=== PATIENT | male | born 1955 ===

== ENCOUNTER → 2023-04-05 | Day surgery (SDC) | payer MEDICARE ==
[~2023-04-05] VITALS: Ht 182.8 cm; Wt 131.5 kg
[~2023-04-05] MED LIST: Avapro300 MG PO; CHLORTHALIDONE25 MG PO; ELIQUIS5 M1 PO; LEVOTHYROXINE50 MCG PO; LIPITOR40 MG PO; METFORMIN HYD1000 MG PO; METOPROLOL SUC100 M1 PO; NORVASC5 MG PO; PANTOPRAZOLE SO40 MG PO
[2023-04-05 07:30] VITALS: BP 182/74
[2023-04-05 09:05] VITALS: BP 126/54
[2023-04-05 09:15] VITALS: BP 118/60
[2023-04-05 09:29] VITALS: BP 128/50
== END | disposition home or self-care (01) ==
LOC: SDC 04-01 11:00
PROVIDERS: ATTEND Surgery
DX: Z12.11 Encounter for screening for malignant neoplasm of colon (principal); Z86.010 Personal history of colon polyps; I10 Essential (primary) hypertension; I25.2 Old myocardial infarction; I25.10 Atherosclerotic heart disease of native coronary artery without angina pectoris; E78.00 Pure hypercholesterolemia, unspecified; F17.210 Nicotine dependence, cigarettes, uncomplicated; Z79.899 Other long term (current) drug therapy
CPT/HCPCS: 00812; G0105

== ENCOUNTER → 2024-08-08 | Outpatient (CLI) | payer MEDICARE | END | disposition home or self-care (01) | LOC: RAD 14:21 | PROVIDERS: ATTEND Internal Medicine Critical Care Medicine | DX: J44.9 Chronic obstructive pulmonary disease, unspecified (principal); J98.4 Other disorders of lung; R05.9 Cough, unspecified; J98.11 Atelectasis ==

== ENCOUNTER → 2025-09-07 | Outpatient (CLI) | payer MEDICARE | END | disposition home or self-care (01) | LOC: WOUNDCARE 04:54 | PROVIDERS: ATTEND Nurse Practitioner Family | DX: E11.621 Type 2 diabetes mellitus with foot ulcer (principal); L97.512 Non-pressure chronic ulcer of other part of right foot with fat layer exposed; L03.116 Cellulitis of left lower limb; M20.40 Other hammer toe(s) (acquired), unspecified foot; E11.42 Type 2 diabetes mellitus with diabetic polyneuropathy; I10 Essential (primary) hypertension; E78.5 Hyperlipidemia, unspecified; F17.210 Nicotine dependence, cigarettes, uncomplicated; Z98.890 Other specified postprocedural states; Z79.899 Other long term (current) drug therapy ==

== ENCOUNTER → 2025-09-14 | Outpatient (CLI) | payer MEDICARE | LOC: WOUNDCARE 03:06 | PROVIDERS: ATTEND Nurse Practitioner Family | DX: E11.621 Type 2 diabetes mellitus with foot ulcer (principal); L97.522 Non-pressure chronic ulcer of other part of left foot with fat layer exposed; E11.42 Type 2 diabetes mellitus with diabetic polyneuropathy; E78.5 Hyperlipidemia, unspecified; L03.116 Cellulitis of left lower limb; M20.40 Other hammer toe(s) (acquired), unspecified foot; I10 Essential (primary) hypertension; F17.210 Nicotine dependence, cigarettes, uncomplicated; Z98.890 Other specified postprocedural states; Z79.899 Other long term (current) drug therapy ==

== ENCOUNTER → 2025-09-21 | Outpatient (CLI) | payer MEDICARE | END | disposition home or self-care (01) | LOC: WOUNDCARE 00:21 | PROVIDERS: ATTEND Nurse Practitioner Family | DX: E11.621 Type 2 diabetes mellitus with foot ulcer (principal); L97.521 Non-pressure chronic ulcer of other part of left foot limited to breakdown of skin; L03.116 Cellulitis of left lower limb; E11.42 Type 2 diabetes mellitus with diabetic polyneuropathy; I10 Essential (primary) hypertension; E78.5 Hyperlipidemia, unspecified; M20.40 Other hammer toe(s) (acquired), unspecified foot; F17.200 Nicotine dependence, unspecified, uncomplicated; Z95.5 Presence of coronary angioplasty implant and graft ==

== ENCOUNTER → 2025-09-28 | Outpatient (CLI) | payer MEDICARE | END | disposition home or self-care (01) | LOC: WOUNDCARE 02:49 | PROVIDERS: ATTEND Nurse Practitioner Family | DX: E11.621 Type 2 diabetes mellitus with foot ulcer (principal); L97.522 Non-pressure chronic ulcer of other part of left foot with fat layer exposed; L03.116 Cellulitis of left lower limb; E11.42 Type 2 diabetes mellitus with diabetic polyneuropathy; M20.40 Other hammer toe(s) (acquired), unspecified foot; I10 Essential (primary) hypertension; E78.5 Hyperlipidemia, unspecified; F17.210 Nicotine dependence, cigarettes, uncomplicated; Z98.890 Other specified postprocedural states; Z79.899 Other long term (current) drug therapy ==

== ENCOUNTER → 2025-10-03 | Outpatient (CLI) | payer MEDICARE | END | disposition home or self-care (01) | LOC: WOUNDCARE 01:43 | PROVIDERS: ATTEND Nurse Practitioner Family | DX: E11.621 Type 2 diabetes mellitus with foot ulcer (principal); L97.521 Non-pressure chronic ulcer of other part of left foot limited to breakdown of skin; L03.116 Cellulitis of left lower limb; E11.42 Type 2 diabetes mellitus with diabetic polyneuropathy; M20.40 Other hammer toe(s) (acquired), unspecified foot; I10 Essential (primary) hypertension; E78.5 Hyperlipidemia, unspecified; Z98.890 Other specified postprocedural states; Z79.899 Other long term (current) drug therapy ==

== ENCOUNTER → 2025-10-24 | Outpatient (CLI) | payer MEDICARE ==
[~2025-10-24] MED LIST changes: +ANORO ELLIPTA1 EACH INH; +ELDERBERRY350 MG PO; +HYDROXYZIN50 MG/25 M PO; +IRON236 MG PO; +MAGNESIUM100 M1 PO; +MULTIPLE VITAM1 EAC2 PO; +PROBIOTICS1 EACH PO; +ZINC7.5 MG PO
[2025-10-24 12:48] LABS: BUN 25 mg/dl (9-23)
== END | disposition home or self-care (01) ==
LOC: LAB 11:34
PROVIDERS: ATTEND Orthopaedic Surgery
DX: E11.622 Type 2 diabetes mellitus with other skin ulcer (principal); M86.18 Other acute osteomyelitis, other site

== ENCOUNTER → 2025-10-30 | Day surgery (SDC) | payer MEDICARE ==
[~2025-10-30] VITALS: Ht 177.8 cm; Wt 114.3 kg
[~2025-10-30] MED LIST changes: +ACETAMINOPHEN 100 ML IV ONE; +HYDROCODONE-AC1 EAC1 PO; +HYDROmorphONE Hydrochloride 0.5 MG/0.5 ML SYRINGE IV PRN; +Lactated Ringer's Solution 1,000 ML IV ONE; +Lidocaine Hydrochloride 2% 5 ML SDV IM ONE; +Lidocaine Hydrochloride 5 ML AMP ONE; +Midazolam Hydrochloride 2 MG/2 ML VIAL IV ONE; +Ondansetron Hydrochloride 4 MG/2 ML VIAL IV ONE; +PROPOFOL 200 MG/20 ML VIAL IV ONE; +ROCURONIUM BROMIDE 50 MG/5 ML SYRINGE IV ONE; +SEVOFLURANE 250 ML BOT INH ONE; +SUGAMMADEX SODIUM 200 MG/2 ML VIAL IV ONE
[2025-10-30 11:12] VITALS: BP 126/60
[2025-10-30 12:52] VITALS: BP 129/56
[2025-10-30 13:07] VITALS: BP 123/59
[2025-10-30 13:22] VITALS: BP 124/56
[2025-10-30 13:37] VITALS: BP 129/66
[2025-10-30 13:50] VITALS: BP 132/60
== END | disposition home or self-care (01) ==
LOC: SDC 10-16 11:00
PROVIDERS: ATTEND Orthopaedic Surgery
DX: E11.622 Type 2 diabetes mellitus with other skin ulcer (principal); L97.529 Non-pressure chronic ulcer of other part of left foot with unspecified severity; M86.672 Other chronic osteomyelitis, left ankle and foot; I25.2 Old myocardial infarction; I25.10 Atherosclerotic heart disease of native coronary artery without angina pectoris; I10 Essential (primary) hypertension; J44.9 Chronic obstructive pulmonary disease, unspecified; F17.200 Nicotine dependence, unspecified, uncomplicated; K21.9 Gastro-esophageal reflux disease without esophagitis; G47.30 Sleep apnea, unspecified; K76.0 Fatty (change of) liver, not elsewhere classified; Z79.899 Other long term (current) drug therapy; Z98.890 Other specified postprocedural states